=== PATIENT | female | born 1970 | race Caucasian/White ===

== ENCOUNTER 2019-02-19 10:54 | Inpatient (IN) | payer OTHER ==
[~2019-02-19] VITALS: Ht 152.4 cm; Wt 71.7 kg
[2019-02-19] MEDS ORDERED: IV NORMAL SALINE 1,000ML 1,000 ML IV SCH (11:02)
[2019-02-19] MEDS ORDERED: ONDANSETRON PF 4 MG/2 ML VIAL. IVP ONE (11:15)
[2019-02-19 11:39] LABS: BASO # 0.1 x10^3/uL (0.0-0.2); BASO % 1 % (0-3); CREATININE 0.9 mg/dL (0.6-1.0); EOS # 0.1 x10^3/uL (0.0-0.7); EOS % 1 % (0-3); GFR 66.3; HEMATOCRIT 30.2 % (36.0-47.0); HEMOGLOBIN 9.2 g/dL (12.0-15.5); LYMPH # 1.5 x10^3/uL (1.0-4.8); LYMPH % 13 % (24-48); MEAN CORPUSCULAR HEMOGLOBIN 18 pg (25-35); MEAN CORPUSCULAR HGB CONC 31 g/dL (31-37); MEAN CORPUSCULAR VOLUME 60 fL (79-100); MONO # 0.9 x10^3/uL (0.0-1.1); MONO % 8 % (0-9); NEUT # 8.9 x10^3uL (1.8-7.7); NEUT % 78 % (31-73); PLATELET COUNT 726 x10^3/uL (140-400); POTASSIUM 3.3 mmol/L (3.5-5.1); RED BLOOD COUNT 5.04 x10^6/uL (3.50-5.40); RED CELL DISTRIBUTION WIDTH 18.4 % (11.5-14.5); WHITE BLOOD COUNT 11.5 x10^3/uL (4.0-11.0)
[2019-02-19 11:44] LABS: AMPHETAMINE/METHAMPHETAMINE NEG (NEG); BARBITURATES NEG (NEG); BENZODIAZEPINES NEG (NEG); CANNABINOIDS NEG (NEG); COCAINE NEG (NEG); METHADONE NEG (NEG); OPIATES NEG (NEG); PHENCYCLIDINE NEG (NEG)
[2019-02-19 11:45] LABS: ALBUMIN 3.7 g/dL (3.4-5.0); TOTAL BILIRUBIN 0.3 mg/dL (0.2-1.0); TOTAL PROTEIN 7.4 g/dL (6.4-8.2)
[2019-02-19 11:55] LABS: CLARITY,URINE CLEAR; COLOR,URINE YELLOW
[2019-02-19 11:56] LABS: BILIRUBIN,URINE NEG (NEG); GLUCOSE,URINE NEG (NEG); NITRITE,URINE NEG (NEG); UROBILINOGEN,URINE 0.2 mg/dL (0.2 mg/dL)
[2019-02-19 11:57] LABS: AMORPHOUS SEDIMENT,UR PRESENT /HPF; BACTERIA,URINE FEW /HPF (0-FEW); SQUAMOUS EPITHELIAL CELL,UR MOD /LPF
[2019-02-19 12:10] LABS: ANISOCYTOSIS SLIGHT; HYPOCHROMIA MOD; MICROCYTOSIS MOD; PLT ESTIMATE INCREASED (ADEQUATE); TEAR DROP CELLS FEW
[2019-02-19 12:11] LABS: ACANTHOCYTES OCC; OVALOCYTES MOD; TARGET CELLS OCC
[2019-02-19 12:12] LABS: POIKILOCYTOSIS MOD; POLYCHROMASIA SLIGHT
--- NOTE | 2019-02-19 12:26 | PHYS DOC ---
Past History Past Medical History: Anxiety, Bipolar, Depression, Fibromyalgia, IBS Past Surgical History: Other Additional Past Surgical Histo: HERNIA/WISDOM TEETH Alcohol Use: None Drug Use: None Adult General Chief Complaint Chief Complaint: ABDOMINAL PAIN HPI HPI Patient is a 48-year-old female who presents with complaint of abdominal pain with nausea and vomiting. Patient states that she is worried that she is being poisoned. She states that there has been a lot of suspicious things have been going on and she states that she just recently completed a will and has been acting very strangely. She also indicates that he is visiting the town where his ex- is and while patient states that may be its nothing that's going on in. Week once dental, she is worried that someone may be trying to poison her. Patient is scheduled for both upper and lower endoscopies on Friday but patient stated she was not able to wait until that time.[] Review of Systems Review of Systems Constitutional: Denies fever or chills [] Respiratory: Denies cough or shortness of breath [] Cardiovascular: No additional information not addressed in HPI [] GI: Complains of abdominal pain with nausea and vomiting. Denies diarrhea [] Integument: Denies rash or skin lesions [] Neurologic: Denies headache, focal weakness or sensory changes [] All other systems were reviewed and found to be within normal limits, except as documented in this note. Current Medications Current Medications Current Medications Medications (Trade) Dose Ordered Sig/Toño Start Time Stop Time Status Last Admin Dose Admin Fentanyl Citrate (Fentanyl 2ml Vial) 25 mcg PRN Q15MIN PRN 02/19/19 11:15 02/20/19 11:14 02/19/19 12:02 25 MCG Ondansetron HCl (Zofran) 4 mg 1X ONCE 02/19/19 11:15 02/19/19 11:18 DC 02/19/19 11:35 4 MG Sodium Chloride 1,000 ml @ 1,000 mls/hr Q1H 02/19/19 11:02 02/19/19 12:01 DC 02/19/19 11:32 1,000 MLS/HR Allergies Allergies Allergies Coded Allergies Type Severity Reaction Last Updated Verified Penicillins Allergy Unknown 02/19/19 Yes Sulfa (Sulfonamide Antibiotics) Allergy Unknown 02/19/19 Yes clarithromycin Allergy Unknown 02/19/19 Yes metronidazole Allergy Unknown 02/19/19 Yes Physical Exam Physical Exam Constitutional: Well developed, well nourished, no acute distress, non-toxic appearance. [] HENT: Normocephalic, atraumatic, bilateral external ears normal, oropharynx moist, no oral exudates, nose normal. [] Eyes: PERRLA, EOMI, conjunctiva normal, no discharge. [] Neck: Normal range of motion, no tenderness, supple. [] Cardiovascular: Regular rate and rhythm[] Lungs & Thorax: Bilateral breath sounds clear to auscultation [] Abdomen: Bowel sounds normal, soft, with epigastric tenderness. [] Skin: Warm, dry, no erythema, no rash. [] Extremities: No tenderness, no cyanosis, no clubbing, ROM intact, no edema. [] Neurologic: Alert and oriented X 3, no focal deficits noted. [] Psychologic: Depressed mood. Moderately anxious. [] Current Patient Data Vital Signs Vital Signs Date Time Temp Pulse Resp B/P (MAP) Pulse Ox O2 Delivery O2 Flow Rate FiO2 02/19/19 12:02 20 Room Air 02/19/19 11:40 85 144/76 (98) 99 02/19/19 10:55 98.6 Lab Results Laboratory Tests Test 02/19/19 11:17 02/19/19 11:20 02/19/19 11:26 White Blood Count 11.5 x10^3/uL (4.0-11.0) H Red Blood Count 5.04 x10^6/uL (3.50-5.40) Hemoglobin 9.2 g/dL (12.0-15.5) L Hematocrit 30.2 % (36.0-47.0) L Mean Corpuscular Volume 60 fL (79-100) L Mean Corpuscular Hemoglobin 18 pg (25-35) L Mean Corpuscular Hemoglobin Concent 31 g/dL (31-37) Red Cell Distribution Width 18.4 % (11.5-14.5) H Platelet Count 726 x10^3/uL (140-400) H Neutrophils (%) (Auto) 78 % (31-73) H Lymphocytes (%) (Auto) 13 % (24-48) L Monocytes (%) (Auto) 8 % (0-9) Eosinophils (%) (Auto) 1 % (0-3) Basophils (%) (Auto) 1 % (0-3) Neutrophils # (Auto) 8.9 x10^3uL (1.8-7.7) H Lymphocytes # (Auto) 1.5 x10^3/uL (1.0-4.8) Monocytes # (Auto) 0.9 x10^3/uL (0.0-1.1) Eosinophils # (Auto) 0.1 x10^3/uL (0.0-0.7) Basophils # (Auto) 0.1 x10^3/uL (0.0-0.2) Platelet Estimate Increased (ADEQUATE) Large Platelets Occ Polychromasia Slight Hypochromasia Mod Poikilocytosis Mod Anisocytosis Slight Microcytosis Mod Target Cells Occ Tear Drop Cells Few Ovalocytes Mod Acanthocytes (Spur Cells) Occ Sodium Level 142 mmol/L (136-145) Potassium Level 3.3 mmol/L (3.5-5.1) L Chloride Level 107 mmol/L (98-107) Carbon Dioxide Level 22 mmol/L (21-32) Anion Gap 13 (6-14) Blood Urea Nitrogen 16 mg/dL (7-20) Creatinine 0.9 mg/dL (0.6-1.0) Estimated GFR (Cockcroft-Gault) 66.3 BUN/Creatinine Ratio 18 (6-20) Glucose Level 114 mg/dL (70-99) H Calcium Level 9.0 mg/dL (8.5-10.1) Total Bilirubin 0.3 mg/dL (0.2-1.0) Aspartate Amino Transferase (AST) 24 U/L (15-37) Alanine Aminotransferase (ALT) 40 U/L (14-59) Alkaline Phosphatase 93 U/L (46-116) Total Protein 7.4 g/dL (6.4-8.2) Albumin 3.7 g/dL (3.4-5.0) Albumin/Globulin Ratio 1.0 (1.0-1.7) Lipase 314 U/L (73-393) Urine Collection Type Unknown Urine Color Yellow Urine Clarity Clear Urine pH 7.0 Urine Specific [place] 1.020 Urine Protein 30 mg/dl (NEG-TRACE) Urine Glucose (UA) Neg mg/dL (NEG) Urine Ketones (Stick) 80 mg/dL (NEG) Urine Blood Neg (NEG) Urine Nitrite Neg (NEG) Urine Bilirubin Neg (NEG) Urine Urobilinogen Dipstick 0.2 mg/dL (0.2 mg/dL) Urine Leukocyte Esterase Small (NEG) Urine RBC 1-2 /HPF (0-2) Urine WBC 5-10 /HPF (0-4) Urine Squamous Epithelial Cells Mod /LPF Urine Amorphous Sediment Present /HPF Urine Bacteria Few /HPF (0-FEW) Urine Mucus Slight /LPF Urine Opiates Screen Neg (NEG) Urine Methadone Screen Neg (NEG) Urine Barbiturates Neg (NEG) Urine Phencyclidine Screen Neg (NEG) Urine Amphetamine/Methamphetamine Neg (NEG) Urine Benzodiazepines Screen Neg (NEG) Urine Cocaine Screen Neg (NEG) Urine Cannabinoids Screen Neg (NEG) Urine Ethyl Alcohol Neg (NEG) POC Urine HCG, Qualitative hcg negative (Negative) EKG EKG [] Radiology/Procedures Radiology/Procedures [] Impressions: Examination: CT ABD PELV W/ IV CONTRST ONLY History: Pelvic pain Comparison/Correlation: 08/06/2011 CT abdomen and pelvis with contrast Findings: Axial images of the abdomen and pelvis were obtained following IV contrast. Sagittal and coronal reformatted images were provided. Visualized lung bases are clear. Liver, spleen, pancreas, and adrenal glands are normal. Left kidney is unremarkable. Retroaortic left renal vein is present. Right renal lower pole 0.75 cm diameter nonobstructive calyceal calculus is present. Appendix is normal. Small umbilical hernia contains omental fat. No extraluminal gas or bowel obstruction. Diverticulosis of colon is present without acute inflammation. Circumferential wall thickening of the sigmoid colon which appears represent contraction or spasm is present. Left adnexal small follicle is visualized in appearance. Right adnexal follicles and 2.6 cm diameter slightly complex cyst are present. Fibroid involvement of the uterus is present. A fibroid at the right uterine body measuring up to 3.9 cm diameter is present. Urinary bladder is decompressed which probably accounts for subtle parenchymal thickening noted. Bony structures are unremarkable for patient's age. Mild levo convexity of the lumbar spine present. No ascites or pelvic free fluid. No enlarged abdominal or pelvic lymph nodes. Impression: Diverticulosis. Fibroid uterus. Adnexal follicles and slightly high-density right ovarian cyst are physiologic in appearance. Ultrasound correlation is recommended to further assess the slightly dense right ovarian cyst. Nonobstructing right renal calculus. PQRS Compliance Statement: One or more of the following individualized dose reduction techniques were utilized for this examination: 1. Automated exposure control 2. Adjustment of the mA and/or kV according to patient size 3. Use of iterative reconstruction technique Electronically signed by: Avel Manzo MD (02/19/2019 1:20 PM) [facility] Course & Med Decision Making Course & Med Decision Making Pertinent Labs and Imaging studies reviewed. (See chart for details) [] Dragon Disclaimer Dragon Disclaimer This electronic medical record was generated, in whole or in part, using a voice recognition dictation system. Departure Departure: Impression: Primary Impression: Abdominal pain Additional Impression: Intractable nausea and vomiting Disposition: ADMITTED INPATIENT Admitting Physician: Hayley Robles Condition: IMPROVED Referrals: GARRICK OWEN MD (PCP) Problem Qualifiers Primary Impression: Abdominal pain Abdominal location: unspecified location Qualified Codes: R10.9 - Unspecified abdominal pain RAYMUNDO AYOUB Jr. DO Feb 19, 2019 12:26
[2019-02-19] MEDS ORDERED: IOHEXOL 300 MG/ML 75 ML VIAL. IV ONE (12:30)
--- NOTE | 2019-02-19 13:22 | RAD ---
Examination: CT ABD PELV W/ IV CONTRST ONLY History: Pelvic pain Comparison/Correlation: 08/06/2011 CT abdomen and pelvis with contrast Findings: Axial images of the abdomen and pelvis were obtained following IV contrast. Sagittal and coronal reformatted images were provided. Visualized lung bases are clear. Liver, spleen, pancreas, and adrenal glands are normal. Left kidney is unremarkable. Retroaortic left renal vein is present. Right renal lower pole 0.75 cm diameter nonobstructive calyceal calculus is present. Appendix is normal. Small umbilical hernia contains omental fat. No extraluminal gas or bowel obstruction. Diverticulosis of colon is present without acute inflammation. Circumferential wall thickening of the sigmoid colon which appears represent contraction or spasm is present. Left adnexal small follicle is visualized in appearance. Right adnexal follicles and 2.6 cm diameter slightly complex cyst are present. Fibroid involvement of the uterus is present. A fibroid at the right uterine body measuring up to 3.9 cm diameter is present. Urinary bladder is decompressed which probably accounts for subtle parenchymal thickening noted. Bony structures are unremarkable for patient's age. Mild levo convexity of the lumbar spine present. No ascites or pelvic free fluid. No enlarged abdominal or pelvic lymph nodes. Impression: Diverticulosis. Fibroid uterus. Adnexal follicles and slightly high-density right ovarian cyst are physiologic in appearance. Ultrasound correlation is recommended to further assess the slightly dense right ovarian cyst. Nonobstructing right renal calculus. PQRS Compliance Statement: One or more of the following individualized dose reduction techniques were utilized for this examination: 1. Automated exposure control 2. Adjustment of the mA and/or kV according to patient size 3. Use of iterative reconstruction technique Electronically signed by: Avel Manzo MD (02/19/2019 1:20 PM) [facility]
[2019-02-19] MEDS: IV NORMAL SALINE 1,000ML 1,000 ML IV SCH ×2 (13:42→20:52)
[2019-02-19] MEDS ORDERED: MORPHINE SULFATE 2 MG/ML DISP.SYRIN. IV PRN (13:45)
[2019-02-19 14:39] VITALS: BP 152/89
[2019-02-19] MEDS ORDERED: HYDR25CA PO (15:16)
[2019-02-19] MEDS ORDERED: FLUV50TA2 PO (15:16)
[2019-02-19] MEDS ORDERED: MONT10TA80 PO (15:16)
[2019-02-19] MEDS ORDERED: MAGN100T6 PO (15:16)
[2019-02-19] MEDS ORDERED: QUET50TA5 PO (15:16)
[2019-02-19] MEDS ORDERED: OMEP40CA45 PO (15:16)
[2019-02-19] MEDS ORDERED: FLUT15.845 NS (15:16)
[2019-02-19] MEDS ORDERED: RIZA10TA6 PO (15:16)
[2019-02-19] MEDS ORDERED: LAMO100T37 PO (15:16)
[2019-02-19] MEDS ORDERED: POLY17PO5 PO (15:16)
[2019-02-19] MEDS ORDERED: TOPI25TA52 PO (15:16)
--- NOTE | 2019-02-19 15:40 | NUR ---
The patient, JUAN CUEVA, 48 y/o, F admitted by GENNA ALMAZAN MD, was given written information regarding hospital policies, unit procedures and contact persons. Valuables were checked and left with patient at bedside. Patient was admitted to [facility] with a diagnosis of abdominal pain, diverticulitis. Dr. Almazan notified of admission via telephone. Responded to bedside. No new orders at this time. Patient stated to this contract technical writer upon arrival " I feel crazy for saying this but i think my may be poisoning me. The past two months i have had weird things happen, like legal paperwork go missing right after we finalized our martinez together and I feel like his ex from [place] may be helping. I have had bad head aches and nose bleeds from no where and bad stomach pains and cramps and this started 2 months ago and has been getting worse. " Patient is alert and oriented x 4, speech is clear, able to make wants and needs known and able to verbalize understanding of others. Patient is stand by assist with ambulation and transfers, lungs are CTA, abdomen is tender, slightly distended , active bowel sounds in all 4 quadrants. HRR S1S2 auscultated with regular rhtyhm. Continent of bowel and bladder, diarrhea reported by patient on 02-19-2019 x 2. Patient is complaining of abdominal pain and nausea at this time. PRN Zofran to be administered per order. Patient is resting in bed at this time.
[2019-02-19] MEDS: ONDANSETRON PF 4 MG/2 ML VIAL. IV PRN ×2 (16:57→20:54)
--- NOTE | 2019-02-19 17:00 | HP ---
ADMIT DATE: 02/19/2019 HISTORY OF PRESENT ILLNESS: The patient is a 48-year-old female patient who presented with a complaint of abdominal pain, nausea and vomiting. The patient stated that she is worried that she is being poisoned. She states that there has been a lot of suspicious things that have been going on and she states that she just recently completed Will and has been eating very strangely, acting very strangely. She also indicates that he is visiting town with his ex- and while patient states that maybe it is nothing that is going on it week. She lost some legal document while he was visiting his daughter there. The patient is scheduled for upper and lower GI endoscopy on Friday, but she stated that she was not able to wait until that time and she cannot even do the bowel preparation given her symptoms. She when questioned specifically whether her has been aggressive or verbally or physically abusive, she denied that. She is very vague about what are things that her was doing that triggered her suspicion. She was actually investigated in the Emergency Room and was found she has severe microcytic hypochromic anemia with multiple abnormalities on her blood film including polychromasia, poikilocytosis, anisocytosis, microcytosis, target cell, teardrop cell, ovalocytes and acanthocytes. Her chemistry was essentially unremarkable except for hypokalemia and her toxic screen was negative. She was admitted for further evaluation and treatment. PAST MEDICAL HISTORY: Significant for fibromyalgia. She has a history of colitis and diverticulosis. She also has bipolar disorder and migraine headache. She has also nasal congestion for which she takes Flonase and also what seemed to be gastroesophageal reflux disease. She has esophageal stricture, it has been dilated multiple times. MEDICATIONS: She is currently on following medications: She is on lamotrigine 100 mg 4 times a day, Topamax 25 mg 4 times a day. She is on fluvoxamine at 25 mg 3 times a day, quetiapine fumarate 50 mg daily, hydroxyzine pamoate 25 mg as needed, rizatriptan for Maxalt 5 mg every 2 hours for migraine headache, magnesium citrate 100 mg once a day, montelukast sodium 10 mg once a day, Flonase 1 spray to each nostril twice a day, polyethylene glycol 17 grams daily and omeprazole 40 mg daily. ALLERGIES: SHE IS ALLERGIC TO SULFA DRUGS, CLARITHROMYCIN AND METRONIDAZOLE. FAMILY HISTORY: She has one brother older and healthy. Her father is 86 years old and has Alzheimer's disease and hypertension. Mother is alive at age of 83. She has history of breast cancer with bilateral breast cancer, diverticulitis and fibromyalgia. SOCIAL HISTORY: She is , has 1 son who is 19 years old. She has never smoked, does not drink alcohol or use any recreational drugs. 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 REVIEW OF SYSTEMS: The patient denies any blurring of vision, cataract, glaucoma or macular degeneration. Denied any earache, tinnitus or sensorineural deafness. Denied any nosebleeds, stuffy nose or postnasal drip. Denied any sore throat, sore tongue, toothache, hoarseness of voice or difficulty swallowing. She did complain of difficulty swallowing but denied any nausea, but no vomiting. Denied any diarrhea or constipation. Denied any hematemesis, melena or hematochezia. Denied any dysuria, frequency or hematuria. Denied any chest pain, shortness of breath, orthopnea or paroxysmal nocturnal dyspnea. Denied any cough, phlegm or hemoptysis. Denied any chills, rigors or fever. PHYSICAL EXAMINATION: GENERAL: When I examined her, she looked well and was clearly in no apparent respiratory distress, pale, no jaundice, cyanosis or thyromegaly. No jugular venous distention. No limb edema. VITAL SIGNS: Her heart rate was 81, blood pressure was 152/89, temperature 98.3, respiratory rate was 20, and oxygen saturation was 98%. HEAD, EYES, EARS, NOSE AND THROAT: Showed normocephalic, atraumatic. NECK: Supple. HEART: Showed normal first and second heart sounds. No gallop or murmur. CHEST: Clear to auscultation. No crepitation or rhonchi. ABDOMEN: Distended, soft, nontender. NEUROLOGICAL: She was awake, alert, responding appropriately. All cranial nerves intact. She moves extremities without difficulty. PSYCHOLOGICALLY: She seemed to have some circumstantiality, has not been able to clearly pinpoint what and how she is poisoned. LABORATORY DATA: This morning showed a white cell count 11,500, hemoglobin 9.2, hematocrit 30, MCV 60 and a platelet count of 726,000. Her chemistry showed a serum sodium 142, potassium 3.3, chloride 107, bicarbonate 22, anion gap of 13, BUN 16, creatinine 0.9, estimated GFR was 66 mL per minute. Her glucose 114, calcium was 9. Total bilirubin, AST, ALT, alkaline phosphatase were normal. Total protein 7.4, albumin 3.7 and lipase was 314. Urinalysis was essentially unremarkable and toxic screen was essentially negative. ASSESSMENT AND PLAN: In summary, this is a 48-year-old female patient who came complaining of generalized abdominal pain associated with nausea. She has not been able to eat and drink for the last 2 months. She was supposed to have upper and lower GI endoscopy, but she has not been able even to get the preparation to go through the process of bowel preparation because of her symptoms. For some reason, she feels that she is poisoning. Her lab work showed that she has severe microcytic hypochromic anemia with multiple abnormalities in the shape and size of the RBC. My plan is to check her serum iron, TIBC, and serum ferritin. I will also contact the lab to see if we can check the level of lead in her blood and I will decide the further management accordingly. I would also order hemoglobin electrophoresis to find out if she has some other hemoglobinopathy like thalassemia and I will decide the further management accordingly. I would also consult Dr. Mortensen to evaluate her as she is one of his patients. I feel that she has some paranoia with marked exacerbation without clear-cut evidence that she is being poisoned. GENNA ALMAZAN MD DR: ILENE/neto JOB#: [id number] / [id number]
[2019-02-19 20:37] VITALS: BP 127/76
--- NOTE | 2019-02-19 21:02 | PDOC ---
Exam Note: Georges Note: Please also refer to the separate dictated note~for this date of service dictated separately.~Patient seen individually. Discussed the patient with Nursing staff reviewed the chart.~Reviewed interim history and current functioning. Reviewed vital signs,~Labs/ Radiology~and current medications noted below. Continue current treatment with the changes noted in the dictated addendum note Assessment: Vital Signs/I&O: Vital Signs Date Time Temp Pulse Resp B/P (MAP) Pulse Ox O2 Delivery O2 Flow Rate FiO2 02/19/19 20:37 98.2 71 20 127/76 (93) 97 Room Air Labs: Laboratory Tests Test 02/19/19 11:17 02/19/19 11:20 02/19/19 11:26 White Blood Count 11.5 x10^3/uL (4.0-11.0) H Red Blood Count 5.04 x10^6/uL (3.50-5.40) Hemoglobin 9.2 g/dL (12.0-15.5) L Hematocrit 30.2 % (36.0-47.0) L Mean Corpuscular Volume 60 fL (79-100) L Mean Corpuscular Hemoglobin 18 pg (25-35) L Mean Corpuscular Hemoglobin Concent 31 g/dL (31-37) Red Cell Distribution Width 18.4 % (11.5-14.5) H Platelet Count 726 x10^3/uL (140-400) H Neutrophils (%) (Auto) 78 % (31-73) H Lymphocytes (%) (Auto) 13 % (24-48) L Monocytes (%) (Auto) 8 % (0-9) Eosinophils (%) (Auto) 1 % (0-3) Basophils (%) (Auto) 1 % (0-3) Neutrophils # (Auto) 8.9 x10^3uL (1.8-7.7) H Lymphocytes # (Auto) 1.5 x10^3/uL (1.0-4.8) Monocytes # (Auto) 0.9 x10^3/uL (0.0-1.1) Eosinophils # (Auto) 0.1 x10^3/uL (0.0-0.7) Basophils # (Auto) 0.1 x10^3/uL (0.0-0.2) Platelet Estimate Increased (ADEQUATE) Large Platelets Occ Polychromasia Slight Hypochromasia Mod Poikilocytosis Mod Anisocytosis Slight Microcytosis Mod Target Cells Occ Tear Drop Cells Few Ovalocytes Mod Acanthocytes (Spur Cells) Occ Sodium Level 142 mmol/L (136-145) Potassium Level 3.3 mmol/L (3.5-5.1) L Chloride Level 107 mmol/L (98-107) Carbon Dioxide Level 22 mmol/L (21-32) Anion Gap 13 (6-14) Blood Urea Nitrogen 16 mg/dL (7-20) Creatinine 0.9 mg/dL (0.6-1.0) Estimated GFR (Cockcroft-Gault) 66.3 BUN/Creatinine Ratio 18 (6-20) Glucose Level 114 mg/dL (70-99) H Calcium Level 9.0 mg/dL (8.5-10.1) Total Bilirubin 0.3 mg/dL (0.2-1.0) Aspartate Amino Transferase (AST) 24 U/L (15-37) Alanine Aminotransferase (ALT) 40 U/L (14-59) Alkaline Phosphatase 93 U/L (46-116) Total Protein 7.4 g/dL (6.4-8.2) Albumin 3.7 g/dL (3.4-5.0) Albumin/Globulin Ratio 1.0 (1.0-1.7) Lipase 314 U/L (73-393) Urine Collection Type Unknown Urine Color Yellow Urine Clarity Clear Urine pH 7.0 Urine Specific [place] 1.020 Urine Protein 30 mg/dl (NEG-TRACE) Urine Glucose (UA) Neg mg/dL (NEG) Urine Ketones (Stick) 80 mg/dL (NEG) Urine Blood Neg (NEG) Urine Nitrite Neg (NEG) Urine Bilirubin Neg (NEG) Urine Urobilinogen Dipstick 0.2 mg/dL (0.2 mg/dL) Urine Leukocyte Esterase Small (NEG) Urine RBC 1-2 /HPF (0-2) Urine WBC 5-10 /HPF (0-4) Urine Squamous Epithelial Cells Mod /LPF Urine Amorphous Sediment Present /HPF Urine Bacteria Few /HPF (0-FEW) Urine Mucus Slight /LPF Urine Opiates Screen Neg (NEG) Urine Methadone Screen Neg (NEG) Urine Barbiturates Neg (NEG) Urine Phencyclidine Screen Neg (NEG) Urine Amphetamine/Methamphetamine Neg (NEG) Urine Benzodiazepines Screen Neg (NEG) Urine Cocaine Screen Neg (NEG) Urine Cannabinoids Screen Neg (NEG) Urine Ethyl Alcohol Neg (NEG) POC Urine HCG, Qualitative hcg negative (Negative) Current Medications: Meds: Current Medications Medications (Trade) Dose Ordered Sig/Toño Route PRN Reason Start Time Stop Time Status Last Admin Dose Admin Fentanyl Citrate (Fentanyl 2ml Vial) 25 mcg PRN Q15MIN PRN IV PAIN GREATER THAN 3/10 02/19/19 11:15 02/20/19 11:14 02/19/19 12:02 Sodium Chloride 1,000 ml @ 1,000 mls/hr Q1H IV 02/19/19 11:02 02/19/19 12:01 DC 02/19/19 11:32 Ondansetron HCl (Zofran) 4 mg 1X ONCE IVP 02/19/19 11:15 02/19/19 11:18 DC 02/19/19 11:35 Iohexol (Omnipaque 300 Mg/ml) 75 ml 1X ONCE IV 02/19/19 12:30 02/19/19 12:31 DC 02/19/19 12:44 Ondansetron HCl (Zofran) 4 mg PRN Q4HRS PRN IV NAUSEA/VOMITING 02/19/19 13:45 02/20/19 13:44 02/19/19 20:54 Sodium Chloride 1,000 ml @ 125 mls/hr Q8H IV 02/19/19 13:42 02/20/19 13:41 02/19/19 20:52 I have reviewed the current psychotropics carefully including drug interactions. Risk benefit ratio favors no change other than as noted in my dictated progress note. Diagnosis: Problems: (1) Bipolar 1 disorder, mixed, moderate (2) Anxiety disorder (3) Psychosis, atypical PAUL MUSA MD Feb 19, 2019 21:02
[2019-02-19 22:47] VITALS: BP 126/73
--- NOTE | 2019-02-20 01:15 | EKG ---
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
[2019-02-20] MEDS: IV NORMAL SALINE 1,000ML 1,000 ML IV SCH (03:09)
[2019-02-20] MEDS: ONDANSETRON PF 4 MG/2 ML VIAL. IV PRN ×2 (04:07→09:44)
[2019-02-20 05:31] VITALS: BP 147/74
[2019-02-20] MEDS ORDERED: hydrOXYzine PAMOATE 25 MG CAPSULE PO PRN (09:00)
[2019-02-20 10:51] VITALS: BP 138/73
[2019-02-20 15:36] VITALS: BP 120/75
[2019-02-20] MEDS ORDERED: IRON SUCROSE COMPLEX 200 MG in IV NORMAL SALINE 100ML 100 ML IV ONE (16:30)
[2019-02-20] MEDS: POTASSIUM CL 40MEQ D5-0.45NACL 1,000 ML IV SCH (17:50)
[2019-02-20 19:24] VITALS: BP 135/80
[2019-02-20] MEDS: risperiDONE 0.5 MG TABLET. PO SCH (21:27)
--- NOTE | 2019-02-20 21:27 | PDOC ---
Exam Note: Georges Note: Please also refer to the separate dictated note~for this date of service dictated separately.~Patient seen individually. Discussed the patient with Nursing staff reviewed the chart.~Reviewed interim history and current functioning. Reviewed vital signs,~Labs/ Radiology~and current medications noted below. Continue current treatment with the changes noted in the dictated addendum note Assessment: Vital Signs/I&O: Vital Signs Date Time Temp Pulse Resp B/P (MAP) Pulse Ox O2 Delivery O2 Flow Rate FiO2 02/20/19 20:10 18 Room Air 02/20/19 19:24 98.9 67 135/80 (98) 98 I & O 02/19/19 02/19/19 02/20/19 15:00 23:00 07:00 Intake Total 1000 ml 500 ml 1134 ml Balance 1000 ml 500 ml 1134 ml Current Medications: Meds: Current Medications Medications (Trade) Dose Ordered Sig/Toño Route PRN Reason Start Time Stop Time Status Last Admin Dose Admin Hydroxyzine Pamoate (Vistaril) 25 mg PRN Q6HRS PRN PO ITCHING 02/20/19 09:00 02/20/19 09:44 Iron Sucrose 200 mg/Sodium Chloride 110 ml @ 110 mls/hr 1X ONCE IV 02/20/19 16:30 02/20/19 17:29 DC 02/20/19 17:49 Fentanyl Citrate (Fentanyl 2ml Vial) 25 mcg PRN Q4HRS PRN IVP PAIN 02/20/19 16:15 02/20/19 19:36 Potassium Chloride/Dextrose/ Sod Cl 1,000 ml @ 75 mls/hr [id number] IV 02/20/19 16:15 02/20/19 17:50 I have reviewed the current psychotropics carefully including drug interactions. Risk benefit ratio favors no change other than as noted in my dictated progress note. Diagnosis: Problems: (1) Abdominal pain (2) Intractable nausea and vomiting (3) Bipolar 1 disorder, mixed, moderate (4) Anxiety disorder (5) Psychosis, atypical PAUL MUSA MD Feb 20, 2019 21:27
[2019-02-20] MEDS: ONDANSETRON PF 4 MG/2 ML VIAL. IVP PRN (22:14)
[2019-02-20 22:28] VITALS: BP 150/91
--- NOTE | 2019-02-20 23:55 | NUR ---
Pt still paranoid about being poisoned by . Dr Mortensen here to see pt. stopping Seroquel and starting Risperdal tonight. Pt very concerned about going home and completing her bowel prep for her outpt colonoscopy with Dr Sal on Friday, stating "I think I will have to go to the ER to make it and get fluids because I will be so dehydrated." Pt c/o fibromyalgia pain and sinus pressure. Pt requesting Fentanyl and warm compress for head. Pt stated that she slept better tonight.
[2019-02-21] VITALS (7 sets, daily range): BP systolic 96–132; BP diastolic 67–82
--- NOTE | 2019-02-21 01:33 | PN ---
DATE: 02/20/2019 SUBJECTIVE: The patient continues to have paranoid ideations. We did check her iron studies and it did show that she has severe iron-deficiency anemia. Her serum iron was only 16, TIBC was extremely high at 429, iron saturation 4 and ferritin was only 8. Her lead and hemoglobin electrophoresis are still pending at the time of this dictation. She has also hypokalemia that we will replenish. OBJECTIVE: GENERAL: When I saw her this afternoon, she looked well and was clearly in no apparent respiratory distress. VITAL SIGNS: Her vital signs are stable with a heart rate of 77, blood pressure was 120/75, temperature 98, respiratory rate 20, and oxygen saturation was 97%. The rest of clinical examination is stable. PLAN: My plan is to replenish her iron stores and start her on Venofer 200 mg IV once today and tomorrow morning she will get 500 and she can go home to start the process of bowel preparation for her upcoming colonoscopy. I did send blood for hemoglobin electrophoresis and also for a lead level and we will let her know once it becomes available. GENNA ALMAZAN MD DR: ILENE/neto JOB#: [id number] / [id number]
[2019-02-21] MEDS: POTASSIUM CL 40MEQ D5-0.45NACL 1,000 ML IV SCH ×2 (05:45→18:55)
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
[2019-02-21 07:54] LABS: CALCIUM 8.4 mg/dL (8.5-10.1); CREATININE 0.7 mg/dL (0.6-1.0); GFR 88.6; POTASSIUM 3.6 mmol/L (3.5-5.1)
[2019-02-21] MEDS ORDERED: IRON SUCROSE COMPLEX 500 MG in IV NORMAL SALINE 250ML 250 ML IV ONE (08:30)
[2019-02-21] MEDS: ONDANSETRON PF 4 MG/2 ML VIAL. IVP PRN (08:48)
[2019-02-21] MEDS ORDERED: diphenhydrAMINE 50 MG/ML VIAL IVP ONE (12:45)
[2019-02-21] MEDS ORDERED: LORazepam 0.5 MG TABLET PO PRN ×2 (12:45)
[2019-02-21] MEDS ORDERED: HYDROCORTISONE SOD SUCC/PF 100 MG/2 ML VIAL. IVP ONE (12:45)
--- NOTE | 2019-02-21 14:19 | PN ---
DATE: 02/21/2019 SUBJECTIVE: The patient was receiving Venofer, the second dose, with a plan to discharge her home to continue preparation for colonoscopy tomorrow. She apparently developed hives. She has been complaining of burning sensation all over. States she is going to pass out. PHYSICAL EXAMINATION: GENERAL: When I examined her, she looked well and was clearly in no apparent respiratory distress. She was pale, but no jaundice or cyanosis. No lymphadenopathy, no thyromegaly. No jugular venous distension. No lower limb edema. VITAL SIGNS: Her heart rate was 118, blood pressure was 96/69, temperature was 97.9, respiratory rate was 20, and oxygen saturation was 100% on room air. HEAD, EYES, EARS, NOSE AND THROAT: Showed normocephalic, atraumatic. NECK: Supple. HEART: Showed normal first and second heart sounds. No gallop, rub or murmur. CHEST: Clear to auscultation. No crepitation or rhonchi. ABDOMEN: Distended, soft, nontender. NEUROLOGIC: She is awake, alert, responding appropriately. All cranial nerves intact. She moves extremities without difficulty. LABORATORY DATA: Her lab work this morning showed serum sodium 142, potassium 3.6, chloride 109, bicarbonate 22, anion gap of 11, BUN 5, creatinine 0.7, estimated GFR was 86 mL per minute. Her glucose 113, calcium was 8.4. Her hemoglobin was 9, hematocrit 30, white cell count was 11,500 and platelets 226,000. She has severe iron deficiency anemia. Serum iron was 16, TIBC was 429, iron saturation was 4% and ferritin was 8%. PLAN: To give her half a liter of normal saline bolus, 100 mg of hydrocortisone and 50 mg of Benadryl. We will monitor her closely and see how she responds. The patient was seen, we did consult Dr. Mortensen. She seemed to be in some kind of paranoia and was very nonspecific and unable to specifically point out why her might be attempting to harm her. GENNA ALMAZAN MD DR: ILENE/neto JOB#: [id number] / [id number]
--- NOTE | 2019-02-21 20:51 | PDOC ---
Exam Note: Georges Note: Please also refer to the separate dictated note~for this date of service dictated separately.~Patient seen individually. Discussed the patient with Nursing staff reviewed the chart.~Reviewed interim history and current functioning. Reviewed vital signs,~Labs/ Radiology~and current medications noted below. Continue current treatment with the changes noted in the dictated addendum note Assessment: Vital Signs/I&O: Vital Signs Date Time Temp Pulse Resp B/P (MAP) Pulse Ox O2 Delivery O2 Flow Rate FiO2 02/21/19 20:00 Room Air 02/21/19 19:21 98.9 91 16 125/78 (94) 94 I & O 02/20/19 02/20/19 02/21/19 15:00 23:00 07:00 Intake Total 232 ml 967 ml Balance 232 ml 967 ml Labs: Laboratory Tests Test 02/21/19 07:02 Sodium Level 142 mmol/L (136-145) Potassium Level 3.6 mmol/L (3.5-5.1) Chloride Level 109 mmol/L (98-107) H Carbon Dioxide Level 22 mmol/L (21-32) Anion Gap 11 (6-14) Blood Urea Nitrogen 5 mg/dL (7-20) L Creatinine 0.7 mg/dL (0.6-1.0) Estimated GFR (Cockcroft-Gault) 88.6 Glucose Level 113 mg/dL (70-99) H Calcium Level 8.4 mg/dL (8.5-10.1) L Current Medications: Meds: Current Medications Medications (Trade) Dose Ordered Sig/Toño Route PRN Reason Start Time Stop Time Status Last Admin Dose Admin Iron Sucrose 500 mg/Sodium Chloride 275 ml @ 78.571 mls/ hr 1X ONCE IV 02/21/19 08:30 02/21/19 11:59 DC 02/21/19 08:48 Risperidone (RisperDAL) 0.5 mg HS PO 02/20/19 22:00 02/20/19 21:27 Diphenhydramine HCl (Benadryl) 50 mg 1X ONCE IVP 02/21/19 12:45 02/21/19 12:46 DC 02/21/19 12:45 Hydrocortisone Sodium Succinate (Solu-CORTEF) 100 mg 1X ONCE IVP 02/21/19 12:45 02/21/19 12:46 DC 02/21/19 12:53 Lorazepam (Ativan) 0.5 mg 1X PRN PO ANXIETY / AGITATION 02/21/19 12:45 02/21/19 12:53 I have reviewed the current psychotropics carefully including drug interactions. Risk benefit ratio favors no change other than as noted in my dictated progress note. Diagnosis: Problems: (1) Abdominal pain (2) Intractable nausea and vomiting (3) Bipolar 1 disorder, mixed, moderate (4) Anxiety disorder (5) Psychosis, atypical PAUL MUSA MD Feb 21, 2019 20:51
[2019-02-21] MEDS: risperiDONE 0.5 MG TABLET. PO SCH (21:03)
--- NOTE | 2019-02-21 23:38 | PN ---
DATE: 02/20/2019 PSYCHIATRIC PROGRESS NOTE This late entry 02/20/2019 covers elements not covered in my initial note. SUBJECTIVE: I met with the patient evening of 02/20/2019. Discussed with nursing staff, reviewed the chart. Per nursing report, the Luvox was discontinued. She remains somewhat paranoid. Nevertheless, this has been less evident. Her , Ang, came to visit her and she was less paranoid about him. She has been started on IV iron supplements per Dr. Robles and lead levels are being awaited. REVIEW OF SYSTEMS: Positive for some tiredness. No CV, , pulmonary, eye system symptoms on review. MENTAL STATUS EXAM: I met with her in her room at length. She is reasonably oriented. Speech coherent, abstraction fair, computation impaired, less paranoid, suspicious, talked at length about visiting with her , states she trusts him more. No active suicidal or homicidal ideation. Otherwise, very pleasant, verbal, open. LABORATORY DATA: Reviewed. IMPRESSION: Bipolar disorder, mixed with possible psychotic features. Rest diagnosis unchanged. RECOMMENDATION: Continue the patient on Topamax and Lamictal. Luvox was stopped. We will change the Seroquel to Risperdal 0.5 mg p.o. at bedtime given her questionable psychotic symptoms. The patient has never been on this in the past. We will assess how she does with this before making any further recommendations from a psychiatric standpoint. PAUL MUSA MD DR: QUINTON/neto JOB#: [id number] / [id number]
[2019-02-22 05:59] VITALS: BP 127/74
--- NOTE | 2019-02-22 08:09 | PN ---
DATE: 02/21/2019 PSYCHIATRIC PROGRESS NOTE This late entry 02/21/2019 covers elements not covered in my initial note. SUBJECTIVE: I met with the patient in the evening. Discussed with nursing staff, reviewed the chart. Overall, the patient has been somewhat less paranoid and her , Ang, visited her during the day. She states she had an allergic reaction to the IRON, IV and could not move for a while. Nursing staff indicated that clinically, she was quite stable, but seemed to have an anxiety reaction, perhaps a questionable and adverse drug reaction briefly with not significantly. She is tolerating the Risperdal 0.5 mg at bedtime. REVIEW OF SYSTEMS: No CV, , pulmonary, eye system symptoms on review. MENTAL STATUS EXAM: The patient is reasonably oriented. Speech is coherent, abstraction fair, computation impaired, language function intact. She is very verbal, open, forthcoming, less paranoid. No suicidal or homicidal ideation. Less fixated on things that have been going wrong. LABORATORY DATA: Reviewed. IMPRESSION: Bipolar disorder, mixed with history of psychotic features. Rest unchanged. RECOMMENDATION: We would not recommend anything differently from a psychiatric standpoint. Continue Lamictal at current dosage. Luvox was stopped. Seroquel was changed to Risperdal 0.5 mg at bedtime. We will maintain this for now. PAUL MUSA MD DR: QUINTON/neto JOB#: [id number] / [id number]
--- NOTE | 2019-02-22 09:57 | NUR ---
Pt is alert and oriented x4. Is wanting to try food, but states that she has some abdominal pain after eating crackers. RN suggested we take it easy for breakfast, see how the morning goes and if she does ok then try regular food for lunch. Pt agrees. Pt states she slept the best she has in a long time last night, and is feeling groggy this morning. No expression of paranoia. WCTM.
--- NOTE | 2019-02-22 10:19 | NUR ---
Pt called and asked nurse asset protection assistant for hard boiled egg. Nurse assitant told patient that this RN had discussion with her already about waiting until lunch to let her belly settle since she was getting abdominal pain. Pt reports she doesn't remember this but needs nourishment. RN ordered the hard boiled eggs for her. They were delivered by dietary and dietary came out stating patient doesn't want them and wants her nurse. RN entered room, pt states "i wanted hard boiled eggs, but I guess sometimes people make them different than you". RN asked how do you make a different hard boiled egg. Pt responded, "well i eat them warm, and Bárbara said you and I had a discussion this morning about my diet." RN went over the conversation we had and patient states she doesn't remember it. Then continued to say that she needed nourishment and she could take better care of herself at home and we have no idea whats even wrong with her. RN asked patient about her diverticulosis diagnosis. Pt states she is not aware of that. Pt said she wants something carby and warm to eat, RN offered oatmeal, pt states, "I don't think you have that when you have diverticulosis". She asked what kind of oatmeal, RN said plan, pt replied "blah, thats why I don't like being here, I can do this better at home than you guys can do here, you don't even know whats wrong with me." entered room, RN said, "I gave you a menu, what looks good". starts listing things, pt states no to everything for one reason or another. It was settled on toast and scrambled eggs. RN called Dr Robles, asked if what exactly we were treating this patient for, his reply was paranoia that her was poisoning her and that medically she can go and we can discharge her. Last night, was visiting patient, no issues during this visit and patient told the RN last night that her and her were working things out, it was no longer a concern because they were working things out.
[2019-02-22] MEDS ORDERED: RISP0.5T24 PO (10:48)
[2019-02-22 10:57] VITALS: BP 135/83
--- NOTE | 2019-02-22 11:08 | NUR ---
Patient is discharging, [facility]. INstructed patient to follow up with GI, Dr Mortensen and PCP. Pt verbalized understanding. IV out. Pt escorted via wheelchair to front entrance where was waiting. has been in patients room this morning, no issues. WCTM.
--- NOTE | 2019-02-23 11:29 | PN ---
DATE: 02/22/2019 PSYCHIATRIC PROGRESS NOTE This late entry 02/22/2019 covers elements not covered in my initial note. SUBJECTIVE: I met with the patient individually, discussed with nursing staff, reviewed the chart. The patient reportedly had a reaction to the iron infusion, but it could have been partially an anxiety attack. Discharge was postponed as a consequence of this. She remains somewhat paranoid, but much less so than before and states she is less suspicious of her Ang. She is tolerating Risperdal 0.5 mg p.o. at bedtime. REVIEW OF SYSTEMS: No CV, , pulmonary, eye system symptoms on review. MENTAL STATUS EXAM: Reasonably oriented speech. DICTATION ENDS HERE PAUL MUSA MD DR: QUINTON/neto JOB#: [id number] / [id number]
== END 2019-02-22 11:12 | disposition home or self-care (01) | DRG 392 ==
LOC: ER 10:54 → 1 SOUTH 13:44
PROVIDERS: ADMIT Internal Medicine; ATTEND Internal Medicine
DX: K21.9 Gastro-esophageal reflux disease without esophagitis (principal); F31.62 Bipolar disorder, current episode mixed, moderate; G43.909 Migraine, unspecified, not intractable, without status migrainosus; M79.7 Fibromyalgia; K57.90 Diverticulosis of intestine, part unspecified, without perforation or abscess without bleeding; D50.9 Iron deficiency anemia, unspecified; F41.1 Generalized anxiety disorder; F60.0 Paranoid personality disorder; Z88.1 Allergy status to other antibiotic agents; Z88.0 Allergy status to penicillin; Z88.2 Allergy status to sulfonamides; Z82.49 Family history of ischemic heart disease and other diseases of the circulatory system; Z82.0 Family history of epilepsy and other diseases of the nervous system; Z80.3 Family history of malignant neoplasm of breast; Z79.899 Other long term (current) drug therapy; E87.6 Hypokalemia
CPT/HCPCS: 36415; 74177; 80048; 80053; 80307; 81001; 81025; 82728; 83020; 83540; 83550; 83655; 83690; 85025; 87086; 93005; 96361; 96374; J1200; J1756; J2270; J2405; J3010; J7042; J7050; Q0177; Q9967; 99285-25; J7030

== ENCOUNTER 2019-04-12 11:38 | Emergency (ER) | payer OTHER ==
[~2019-04-12] VITALS: Ht 152.4 cm; Wt 55.0 kg
[~2019-04-12 11:38] MED LIST: FLUT15.845 NS; FLUV50TA2 PO; HYDR25CA PO; LAMO100T37 PO; MAGN100T6 PO; MONT10TA80 PO; OMEP40CA45 PO; POLY17PO5 PO; QUET50TA5 PO; RISP0.5T24 PO; RIZA10TA6 PO; TOPI25TA52 PO
[2019-04-12] MEDS ORDERED: IV NORMAL SALINE 1,000ML 1,000 ML IV SCH (11:50)
[2019-04-12] MEDS ORDERED: METOCLOPRAMIDE HCL 10 MG/2 ML VIAL. IVP ONE (12:00)
[2019-04-12] MEDS ORDERED: diphenhydrAMINE 50 MG/ML VIAL IVP ONE (12:00)
[2019-04-12 12:20] LABS: BASO # 0.1 x10^3/uL (0.0-0.2); BASO % 1 % (0-3); EOS % 1 % (0-3); HEMATOCRIT 40.5 % (36.0-47.0); LYMPH # 1.6 x10^3/uL (1.0-4.8); LYMPH % 18 % (24-48); MEAN CORPUSCULAR HEMOGLOBIN 23 pg (25-35); MEAN CORPUSCULAR HGB CONC 32 g/dL (31-37); MEAN CORPUSCULAR VOLUME 71 fL (79-100); MONO # 0.6 x10^3/uL (0.0-1.1); MONO % 7 % (0-9); NEUT # 6.5 x10^3uL (1.8-7.7); NEUT % 74 % (31-73); PLATELET COUNT 507 x10^3/uL (140-400); RED BLOOD COUNT 5.67 x10^6/uL (3.50-5.40); RED CELL DISTRIBUTION WIDTH 29.3 % (11.5-14.5); WHITE BLOOD COUNT 8.8 x10^3/uL (4.0-11.0)
[2019-04-12 12:25] LABS: CALCIUM 9.5 mg/dL (8.5-10.1); GFR 58.7; POTASSIUM 3.6 mmol/L (3.5-5.1)
[2019-04-12 12:31] LABS: ALBUMIN/GLOBULIN RATIO 1.2 (1.0-1.7); TOTAL BILIRUBIN 0.1 mg/dL (0.2-1.0); TOTAL PROTEIN 7.3 g/dL (6.4-8.2)
[2019-04-12 13:14] LABS: OVALOCYTES FEW; PLT ESTIMATE INCREASED (ADEQUATE); POIKILOCYTOSIS MOD
[2019-04-12 13:15] LABS: ANISOCYTOSIS MOD; HYPOCHROMIA MOD; MICROCYTOSIS MOD; POLYCHROMASIA SLIGHT; TEAR DROP CELLS OCC
--- NOTE | 2019-04-12 13:40 | PHYS DOC ---
Past History Past Medical History: Anxiety, Bipolar, Depression, Fibromyalgia, IBS Past Surgical History: Other Additional Past Surgical Histo: HERNIA/WISDOM TEETH Alcohol Use: None Drug Use: None Adult General Chief Complaint Chief Complaint: ANXIETY/PANIC ATTACK HPI HPI Patient is a 48-year-old female who presents with complaint of nausea and intermittent vomiting as well as severe anxiety. Patient has been admitted multiple times for abdominal pain and nausea as well as anxiety and has had significant workup at both and [facility]. Patient has recently had medications changed for her anxiety but states that nothing is helping. She states that she is just overwhelmed by her anxiety. She also states that she is nauseated today and took a Zofran without improvement. Patient denies any suicidal or homicidal ideations. She rates the pain in her left upper abdomen as moderate and states that it is always like this.[] Review of Systems Review of Systems Constitutional: Denies fever or chills [] Respiratory: Denies cough or shortness of breath [] Cardiovascular: No additional information not addressed in HPI [] GI: Complains of abdominal pain with nausea and vomiting. Denies diarrhea [] Integument: Denies rash or skin lesions [] Neurologic: Denies headache, focal weakness or sensory changes [] Psychiatric: Complains of severe anxiety. Denies any suicidal or homicidal idea tions.[] All other systems were reviewed and found to be within normal limits, except as documented in this note. Current Medications Current Medications Current Medications Medications (Trade) Dose Ordered Sig/Toño Start Time Stop Time Status Last Admin Dose Admin Diphenhydramine HCl (Benadryl) 25 mg 1X ONCE 04/12/19 12:00 04/12/19 12:01 DC 04/12/19 12:10 25 MG Metoclopramide HCl (Reglan Vial) 10 mg 1X ONCE 04/12/19 12:00 04/12/19 12:01 DC 04/12/19 12:11 10 MG Sodium Chloride 1,000 ml @ 1,000 mls/hr Q1H 04/12/19 11:50 04/12/19 12:49 DC 04/12/19 12:08 1,000 MLS/HR Allergies Allergies Allergies Coded Allergies Type Severity Reaction Last Updated Verified Penicillins Allergy Unknown 02/19/19 Yes Sulfa (Sulfonamide Antibiotics) Allergy Unknown 02/19/19 Yes clarithromycin Allergy Unknown 02/19/19 Yes metronidazole Allergy Unknown 02/19/19 Yes Physical Exam Physical Exam Constitutional: Well developed, well nourished, no acute distress, non-toxic appearance. [] HENT: Normocephalic, atraumatic, bilateral external ears normal, oropharynx moist, no oral exudates, nose normal. [] Eyes: PERRLA, EOMI, conjunctiva normal, no discharge. [] Neck: Normal range of motion, no tenderness, supple. [] Cardiovascular: Regular rate and rhythm[] Lungs & Thorax: Bilateral breath sounds clear to auscultation [] Abdomen: Bowel sounds normal, soft, with epigastric and left upper quadrant tenderness. [] Skin: Warm, dry, no erythema, no rash. [] Extremities: No tenderness, no cyanosis, no clubbing, ROM intact. [] Neurologic: Alert and oriented X 3, no focal deficits noted. [] Psychologic: Moderately anxious and tearful on exam. [] Current Patient Data Vital Signs Vital Signs Date Time Temp Pulse Resp B/P (MAP) Pulse Ox O2 Delivery O2 Flow Rate FiO2 04/12/19 13:29 83 18 173/93 (119) 99 Room Air Lab Results Laboratory Tests Test 04/12/19 12:02 White Blood Count 8.8 x10^3/uL (4.0-11.0) Red Blood Count 5.67 x10^6/uL (3.50-5.40) H Hemoglobin 13.0 g/dL (12.0-15.5) Hematocrit 40.5 % (36.0-47.0) Mean Corpuscular Volume 71 fL (79-100) L Mean Corpuscular Hemoglobin 23 pg (25-35) L Mean Corpuscular Hemoglobin Concent 32 g/dL (31-37) Red Cell Distribution Width 29.3 % (11.5-14.5) H Platelet Count 507 x10^3/uL (140-400) H Neutrophils (%) (Auto) 74 % (31-73) H Lymphocytes (%) (Auto) 18 % (24-48) L Monocytes (%) (Auto) 7 % (0-9) Eosinophils (%) (Auto) 1 % (0-3) Basophils (%) (Auto) 1 % (0-3) Neutrophils # (Auto) 6.5 x10^3uL (1.8-7.7) Lymphocytes # (Auto) 1.6 x10^3/uL (1.0-4.8) Monocytes # (Auto) 0.6 x10^3/uL (0.0-1.1) Eosinophils # (Auto) 0.0 x10^3/uL (0.0-0.7) Basophils # (Auto) 0.1 x10^3/uL (0.0-0.2) Platelet Estimate Increased (ADEQUATE) Polychromasia Slight Hypochromasia Mod Poikilocytosis Mod Anisocytosis Mod Microcytosis Mod Tear Drop Cells Occ Ovalocytes Few Sodium Level 141 mmol/L (136-145) Potassium Level 3.6 mmol/L (3.5-5.1) Chloride Level 105 mmol/L (98-107) Carbon Dioxide Level 21 mmol/L (21-32) Anion Gap 15 (6-14) H Blood Urea Nitrogen 18 mg/dL (7-20) Creatinine 1.0 mg/dL (0.6-1.0) Estimated GFR (Cockcroft-Gault) 58.7 BUN/Creatinine Ratio 18 (6-20) Glucose Level 97 mg/dL (70-99) Calcium Level 9.5 mg/dL (8.5-10.1) Total Bilirubin 0.1 mg/dL (0.2-1.0) L Aspartate Amino Transferase (AST) 15 U/L (15-37) Alanine Aminotransferase (ALT) 47 U/L (14-59) Alkaline Phosphatase 85 U/L (46-116) Total Protein 7.3 g/dL (6.4-8.2) Albumin 4.0 g/dL (3.4-5.0) Albumin/Globulin Ratio 1.2 (1.0-1.7) Lipase 410 U/L (73-393) H EKG EKG [] Radiology/Procedures Radiology/Procedures [] Course & Med Decision Making Course & Med Decision Making Pertinent Labs and Imaging studies reviewed. (See chart for details) [] Dragon Disclaimer Dragon Disclaimer This electronic medical record was generated, in whole or in part, using a voice recognition dictation system. Departure Departure: Impression: Primary Impression: Anxiety disorder Additional Impression: Nausea and vomiting Disposition: 01 HOME, SELF-CARE Condition: STABLE Referrals: GARRICK OWEN MD (PCP) Patient Instructions: Anxiety and Panic Attacks, Nausea and Vomiting Scripts Metoclopramide Hcl (REGLAN) 10 Mg Tablet 1 TAB PO QID PRN for NAUSEA, #20 TAB 0 Refills before food and bedtime Prov: RAYMUNDO AYOUB Jr. DO 04/12/19 Problem Qualifiers Primary Impression: Anxiety disorder Anxiety disorder type: unspecified anxiety disorder Qualified Codes: F41.9 - Anxiety disorder, unspecified Additional Impression: Nausea and vomiting Vomiting type: unspecified Vomiting Intractability: non-intractable Qualified Codes: R11.2 - Nausea with vomiting, unspecified RAYMUNDO AYOUB Jr. DO Apr 12, 2019 13:39
[2019-04-12 13:57] LABS: AMORPHOUS SEDIMENT,UR PRESENT /HPF; BACTERIA,URINE FEW /HPF (0-FEW); BILIRUBIN,URINE NEG (NEG); CLARITY,URINE CLOUDY; COLOR,URINE YELLOW; GLUCOSE,URINE NEG (NEG); NITRITE,URINE NEG (NEG); RBC,URINE OCC /HPF (0-2); SQUAMOUS EPITHELIAL CELL,UR FEW /LPF; UROBILINOGEN,URINE 0.2 mg/dL (0.2 mg/dL)
[2019-04-12] MEDS ORDERED: METO10TA81 PO ×2 (14:03→14:14)
[2019-04-12 14:42] VITALS: BP 138/78
[2019-04-13] MEDS ORDERED: DULO30CA2 PO (11:09)
[2019-04-13] MEDS ORDERED: TOPI50TA38 PO (11:09)
[2019-04-13] MEDS ORDERED: PANT40TA5 PO (11:09)
[2019-04-13] MEDS ORDERED: MONT10TA80 PO (11:09)
== END 2019-04-12 15:03 | disposition home or self-care (01) ==
LOC: ER 11:38
DX: F41.9 Anxiety disorder, unspecified (principal); R11.2 Nausea with vomiting, unspecified; R10.13 Epigastric pain; R10.12 Left upper quadrant pain; F31.9 Bipolar disorder, unspecified; M79.7 Fibromyalgia; K58.9 Irritable bowel syndrome, unspecified; Z88.2 Allergy status to sulfonamides; Z88.0 Allergy status to penicillin; Z88.1 Allergy status to other antibiotic agents; Z88.8 Allergy status to other drugs, medicaments and biological substances
CPT/HCPCS: 36415; 80053; 81001; 81025; 83690; 85025; 96361; 96374; 96375; 99284; J1200; J2765; J7030

== ENCOUNTER 2019-04-13 07:07 | Observation (INO) | payer OTHER ==
[~2019-04-13] VITALS: Ht 152.4 cm; Wt 65.0 kg
[~2019-04-13 07:07] MED LIST changes: +METO10TA81 PO
[2019-04-13] MEDS ORDERED: IV NORMAL SALINE 1,000ML 1,000 ML IV SCH (07:24)
--- NOTE | 2019-04-13 07:40 | PHYS DOC ---
Past History Past Medical History: Anxiety, Depression, GERD, Migraines, Other Additional Past Medical Histor: FIBROMYLIA Past Surgical History: Other Additional Past Surgical Histo: ENDOSCOPY, COLONSOPE Alcohol Use: None Drug Use: None Adult General Chief Complaint Chief Complaint: CHEST WALL PAIN [facility] HPI Patient is a 48-year-old female who presents with report of chest pain, abdominal pain and severe anxiety. Patient was seen here yesterday for anxiety and nausea. Patient states that her nausea was better when she left but then nausea developed again. She states that she has also been having chest pain throughout the night and states that she was unable to sleep because of the chest pain. Patient rates pain as severe. She states the pain is worsened with just about everything. Patient also indicates that her nausea is back.[] Review of Systems Review of Systems Constitutional: Denies fever or chills [] Respiratory: Denies cough or shortness of breath [] Cardiovascular: No additional information not addressed in HPI [] GI: Complains of abdominal pain with nausea and vomiting. Denies diarrhea [] Integument: Denies rash or skin lesions [] Neurologic: Denies headache, focal weakness or sensory changes [] Psychiatric: Complains of severe anxiety[] All other systems were reviewed and found to be within normal limits, except as documented in this note. Current Medications Current Medications Current Medications Medications (Trade) Dose Ordered Sig/[facility] Start Time Stop Time Status Last Admin Dose Admin Aspirin (Children'S Aspirin) 324 mg 1X ONCE 04/13/19 07:30 04/13/19 07:31 UNV Nitroglycerin (Nitrostat) 0.4 mg PRN Q5MIN PRN 04/13/19 07:30 04/14/19 07:29 UNV Sodium Chloride 1,000 ml @ 1,000 mls/hr Q1H 04/13/19 07:24 04/13/19 08:23 UNV Allergies Allergies Allergies Coded Allergies Type Severity Reaction Last Updated Verified Penicillins Allergy Unknown 04/13/19 Yes Sulfa (Sulfonamide Antibiotics) Allergy Unknown 04/13/19 Yes clarithromycin Allergy Unknown 04/13/19 Yes metronidazole Allergy Unknown 04/13/19 Yes Physical Exam Physical Exam Constitutional: Well developed, well nourished, no acute distress, non-toxic appearance. [] HENT: Normocephalic, atraumatic, bilateral external ears normal, oropharynx moist, no oral exudates, nose normal. [] Eyes: PERRLA, EOMI, conjunctiva normal, no discharge. [] Neck: Normal range of motion, no tenderness, supple, no stridor. [] Cardiovascular: Regular rate and rhythm[] Lungs & Thorax: Bilateral breath sounds clear to auscultation [] Abdomen: Bowel sounds normal, soft, with diffuse tenderness. [] Skin: Warm, dry, no erythema, no rash. [] Extremities: No tenderness, no cyanosis, no clubbing, ROM intact. [] Neurologic: Alert and oriented X 3, no focal deficits noted. [] Psychologic: Patient tearful on exam, anxious with depressed mood. [] Current Patient Data Vital Signs Vital Signs Date Time Temp Pulse Resp B/P (MAP) Pulse Ox O2 Delivery O2 Flow Rate FiO2 04/13/19 07:19 98.8 106 18 158/91 (113) Room Air 95.0 EKG EKG EKG demonstrates sinus tachycardia with rate of 101.[] Radiology/Procedures Radiology/Procedures [] Impressions: REASON: chest pain PROCEDURE: PORTABLE CHEST 1V EXAM: PORTABLE CHEST 1V INDICATION: Chest pain. TECHNIQUE: Single view COMPARISON: None FINDINGS: The heart size is normal. The great vessels appear unremarkable. There is no hilar or mediastinal mass. The lungs are clear. There is no pleural effusion or pneumothorax. There are no significant osseous abnormalities. IMPRESSION: No active cardiopulmonary disease. Electronically signed by: Alona Velazco MD (04/13/2019 7:58 AM) [facility] Course & Med Decision Making Course & Med Decision Making Pertinent Labs and Imaging studies reviewed. (See chart for details) [] Dragon Disclaimer Dragon Disclaimer This electronic medical record was generated, in whole or in part, using a voice recognition dictation system. Departure Departure: Impression: Primary Impression: Chest pain Additional Impressions: Nausea and vomiting Anxiety disorder Disposition: ADMITTED INPATIENT Admitting Physician: Hayley Robles Condition: IMPROVED Referrals: GARRICK OWEN MD (PCP) Problem Qualifiers Primary Impression: Chest pain Chest pain type: unspecified Qualified Codes: R07.9 - Chest pain, unspecified Additional Impressions: Nausea and vomiting Vomiting type: unspecified Vomiting Intractability: unspecified Qualified Codes: R11.2 - Nausea with vomiting, unspecified Anxiety disorder Anxiety disorder type: unspecified anxiety disorder Qualified Codes: F41.9 - Anxiety disorder, unspecified RAYMUNDO AYOUB Jr. DO Apr 13, 2019 07:40
[2019-04-13] MEDS ORDERED: ASPIRIN 81 MG TAB.CHEW PO ONE (07:45)
[2019-04-13] MEDS: NITROGLYCERIN SUBLINGUAL 0.4 MG BOTTLE OF 25. SL PRN ×2 (07:49→08:00)
[2019-04-13 08:00] LABS: BASO # 0.1 x10^3/uL (0.0-0.2); BASO % 1 % (0-3); EOS % 0 % (0-3); HEMATOCRIT 38.5 % (36.0-47.0); HEMOGLOBIN 12.4 g/dL (12.0-15.5); LYMPH # 1.2 x10^3/uL (1.0-4.8); LYMPH % 14 % (24-48); MEAN CORPUSCULAR HEMOGLOBIN 23 pg (25-35); MEAN CORPUSCULAR HGB CONC 32 g/dL (31-37); MEAN CORPUSCULAR VOLUME 72 fL (79-100); MONO # 0.6 x10^3/uL (0.0-1.1); MONO % 7 % (0-9); NEUT % 79 % (31-73); PLATELET COUNT 488 x10^3/uL (140-400); RED BLOOD COUNT 5.34 x10^6/uL (3.50-5.40); RED CELL DISTRIBUTION WIDTH 29.1 % (11.5-14.5); WHITE BLOOD COUNT 8.9 x10^3/uL (4.0-11.0)
[2019-04-13] MEDS ORDERED: METOCLOPRAMIDE HCL 10 MG/2 ML VIAL. IVP ONE (08:00)
--- NOTE | 2019-04-13 08:01 | RAD ---
EXAM: PORTABLE CHEST 1V INDICATION: Chest pain. TECHNIQUE: Single view COMPARISON: None FINDINGS: The heart size is normal. The great vessels appear unremarkable. There is no hilar or mediastinal mass. The lungs are clear. There is no pleural effusion or pneumothorax. There are no significant osseous abnormalities. IMPRESSION: No active cardiopulmonary disease. Electronically signed by: Alona Velazco MD (04/13/2019 7:58 AM) [facility]
[2019-04-13 08:08] LABS: CALCIUM 9.1 mg/dL (8.5-10.1); CREATININE 0.9 mg/dL (0.6-1.0); GFR 66.3; POTASSIUM 3.5 mmol/L (3.5-5.1)
[2019-04-13 08:14] LABS: ALBUMIN 3.9 g/dL (3.4-5.0); ALBUMIN/GLOBULIN RATIO 1.2 (1.0-1.7); MAGNESIUM 2.3 mg/dL (1.8-2.4); TOTAL BILIRUBIN 0.2 mg/dL (0.2-1.0); TOTAL PROTEIN 7.1 g/dL (6.4-8.2)
[2019-04-13] MEDS ORDERED: KETOROLAC 30 MG/ML VIAL. IVP ONE (08:15)
[2019-04-13] MEDS ORDERED: HALOPERIDOL LACT 5 MG/ML VIAL. IVP ONE (08:15)
[2019-04-13] MEDS ORDERED: ONDANSETRON PF 4 MG/2 ML VIAL. IV PRN (09:00)
[2019-04-13] MEDS ORDERED: NITROGLYCERIN SUBLINGUAL 0.4 MG BOTTLE OF 25. SL PRN (09:00)
[2019-04-13 09:08] LABS: PLT ESTIMATE INCREASED (ADEQUATE)
[2019-04-13 09:09] LABS: OVALOCYTES FEW
[2019-04-13 09:11] LABS: BURR CELLS FEW; TARGET CELLS OCC
[2019-04-13 09:12] LABS: TEAR DROP CELLS OCC
[2019-04-13 09:13] LABS: ANISOCYTOSIS SLIGHT
[2019-04-13 09:14] LABS: HYPOCHROMIA SLIGHT; MICROCYTOSIS SLIGHT
[2019-04-13 09:28] VITALS: BP 122/73
--- NOTE | 2019-04-13 09:47 | PDOC2 ---
GIBRAN ALFARO DRIVER MEDIC 04/13/19 0947: CARDIAC CONSULT DATE OF CONSULT Date Of Consult DATE: 04/13/19 TIME: 09:44 REASON FOR CONSULT Reason for Consult Chest pain REFERRING PHYSICIAN Referring Physician Dr. Robles SOURCE Source: Chart review, Patient HPI History of Present Illness This is a 48 yo female who presented secondary to left chest and left sided abdominal pain. Reports her fibromyalgia has flared up again. Has had stabbing pain under her left breast for the last 3 months. Pain moves down her left side. Associated with nausea. No dizziness, diaphoresis, palpitations, or SOA. Has significant tenderness in the left side with only sfot palpitation. Certain movements also exacerbate the pain. PAST MEDICAL HISTORY GI: Diverticulosis, Irritable bowel disease Psych: Bipolar, Depression Rheumatologic: Fibromyalgia PAST SURGICAL HISTORY Past Surgical History: No pertinent history FAMILY HISTORY Family History: Hypertension SOCIAL HISTORY Smoke: No ALCOHOL: none Drugs: None Lives: with Family CURRENT MEDICATIONS Current Medications Current Medications Aspirin (Children'S Aspirin) 324 mg 1X ONCE PO Last administered on 04/13/19at 07:49; Start 04/13/19 at 07:45; Stop 04/13/19 at 07:46; Status DC Nitroglycerin (Nitrostat) 0.4 mg PRN Q5MIN PRN SL CP RATING > 1/10 Last administered on 04/13/19at 08:00; Start 04/13/19 at 07:30; Stop 04/13/19 at 08:57; Status DC Sodium Chloride 1,000 ml @ 1,000 mls/hr Q1H IV Last administered on 04/13/19at 07:48; Start 04/13/19 at 07:24; Stop 04/13/19 at 08:23; Status DC Metoclopramide HCl (Reglan Vial) 10 mg 1X ONCE IVP Last administered on 04/13/19at 07:48; Start 04/13/19 at 08:00; Stop 04/13/19 at 08:01; Status DC Ketorolac Tromethamine (Toradol 30mg Vial) 30 mg 1X ONCE IVP Last administered on 04/13/19at 08:09; Start 04/13/19 at 08:15; Stop 04/13/19 at 08:16; Status DC Haloperidol Lactate (Haldol) 5 mg 1X ONCE IVP Last administered on 04/13/19at 08:09; Start 04/13/19 at 08:15; Stop 04/13/19 at 08:16; Status DC Ondansetron HCl (Zofran) 4 mg PRN Q4HRS PRN IV NAUSEA/VOMITING; Start 04/13/19 at 09:00; Stop 04/14/19 at 08:59 Nitroglycerin (Nitrostat) 0.4 mg PRN Q5MIN PRN SL CHEST PAIN; Start 04/13/19 at 09:00; Stop 04/14/19 at 08:59 Active Scripts Active Reglan (Metoclopramide Hcl) 10 Mg Tablet 1 Tab PO QID PRN 5 Days before food and bedtime Reglan (Metoclopramide Hcl) 10 Mg Tablet 1 Tab PO QID PRN before food and bedtime Reported Risperdal (Risperidone) 0.5 Mg Tablet 1 Tab PO QHS 30 Days Fluticasone Propionate 15.8 Ml [place].susp 15.8 Ml NS DAILY [place] [employer] (Rizatriptan Benzoate) 10 Mg Tab.rapdis 5 Mg PO Q2HR Montelukast Sodium Tablet (Montelukast Sodium) 10 Mg Tablet 10 Mg PO HS Miralax (Polyethylene Glycol 3350) 17 Gm Powd.pack 1 Packet PO DAILY 2 Days dissolve in water Omeprazole 40 Mg Capsule.dr 1 Cap PO DAILY Magnesium Citrate 100 Mg Tablet 1 Tab PO PRN PRN 30 Days Topamax (Topiramate) 25 Mg Tablet 1 Tab PO QID 30 Days Lamotrigine 100 Mg Tab.er.24 1 Tab PO QID 30 Days ALLERGIES Allergies: Coded Allergies: Penicillins (Verified Allergy, Unknown, 04/13/19) Sulfa (Sulfonamide Antibiotics) (Verified Allergy, Unknown, 04/13/19) clarithromycin (Verified Allergy, Unknown, 04/13/19) metronidazole (Verified Allergy, Unknown, 04/13/19) ROS Review of Systems 14 point ROS conducted with pertinent positives noted above in hPI PHYSICAL EXAM General: Alert, Oriented X3, Cooperative, No acute distress HEENT: Atraumatic, Mucous membr. moist/pink Lungs: Clear to auscultation, Other (significant left chest tenderness with palpitation) Heart: Regular rate, Normal S1, Normal S2, No murmurs Abdomen: Soft, No tenderness Extremities: No edema, Normal pulses Skin: No rashes, No breakdown Neuro: Normal speech, Sensation intact Psych/Mental Status: Mental status NL, Mood NL MUSCULOSKELETAL: No joint tenderness VITALS Vital Signs Vital Signs Date Time Temp Pulse Resp B/P (MAP) Pulse Ox O2 Delivery O2 Flow Rate FiO2 04/13/19 09:28 98.1 80 20 122/73 (89) 94 Room Air 04/13/19 07:19 95.0 LABS LABS Laboratory Tests Test 04/13/19 07:44 White Blood Count 8.9 x10^3/uL (4.0-11.0) Red Blood Count 5.34 x10^6/uL (3.50-5.40) Hemoglobin 12.4 g/dL (12.0-15.5) Hematocrit 38.5 % (36.0-47.0) Mean Corpuscular Volume 72 fL (79-100) Mean Corpuscular Hemoglobin 23 pg (25-35) Mean Corpuscular Hemoglobin Concent 32 g/dL (31-37) Red Cell Distribution Width 29.1 % (11.5-14.5) Platelet Count 488 x10^3/uL (140-400) Neutrophils (%) (Auto) 79 % (31-73) Lymphocytes (%) (Auto) 14 % (24-48) Monocytes (%) (Auto) 7 % (0-9) Eosinophils (%) (Auto) 0 % (0-3) Basophils (%) (Auto) 1 % (0-3) Neutrophils # (Auto) 7.0 x10^3uL (1.8-7.7) Lymphocytes # (Auto) 1.2 x10^3/uL (1.0-4.8) Monocytes # (Auto) 0.6 x10^3/uL (0.0-1.1) Eosinophils # (Auto) 0.0 x10^3/uL (0.0-0.7) Basophils # (Auto) 0.1 x10^3/uL (0.0-0.2) Platelet Estimate Increased (ADEQUATE) Hypochromasia Slight Anisocytosis Slight Microcytosis Slight Target Cells Occ Tear Drop Cells Occ Ovalocytes Few [place] Cells Few Sodium Level 141 mmol/L (136-145) Potassium Level 3.5 mmol/L (3.5-5.1) Chloride Level 106 mmol/L (98-107) Carbon Dioxide Level 21 mmol/L (21-32) Anion Gap 14 (6-14) Blood Urea Nitrogen 13 mg/dL (7-20) Creatinine 0.9 mg/dL (0.6-1.0) Estimated GFR (Cockcroft-Gault) 66.3 BUN/Creatinine Ratio 14 (6-20) Glucose Level 112 mg/dL (70-99) Calcium Level 9.1 mg/dL (8.5-10.1) Magnesium Level 2.3 mg/dL (1.8-2.4) Total Bilirubin 0.2 mg/dL (0.2-1.0) Aspartate Amino Transf (AST/SGOT) 16 U/L (15-37) Alanine Aminotransferase (ALT/SGPT) 41 U/L (14-59) Alkaline Phosphatase 80 U/L (46-116) Troponin I Quantitative < 0.017 ng/mL (0-0.055) Total Protein 7.1 g/dL (6.4-8.2) Albumin 3.9 g/dL (3.4-5.0) Albumin/Globulin Ratio 1.2 (1.0-1.7) Lipase 348 U/L (73-393) ASSESSMENT/PLAN Assessment/Plan 1. Chest pain, non-cardiac; initial trop negative. EKG without acute changes. 2. Abdominal pain 3. Depression, bipolar 4. Fibromyalgia 6. GERD, IBS Recommendations Supportive care Outpatient echocardiogram No further cardiac workup indicated at this time CHARLOTTE STEARNS MD 04/13/19 1538: CARDIAC CONSULT ASSESSMENT/PLAN Assessment/Plan Patient seen and examined. Agree with COLOR TESTER's assessment and plan. Chest pain with atypical features, reproducible to palpation and most probably musculoskeletal Myocardial infarction has been ruled out Plan outpatient echocardiogram and MPI Thank you for your consultation GIBRAN ALFARO APRN Apr 13, 2019 09:47 CHARLOTTE STEARNS MD Apr 13, 2019 15:38
[2019-04-13] MEDS ORDERED: TOPI50TA38 PO (11:09)
[2019-04-13] MEDS ORDERED: PANT40TA5 PO (11:09)
[2019-04-13] MEDS ORDERED: MONT10TA80 PO (11:09)
[2019-04-13] MEDS ORDERED: DULO30CA2 PO (11:09)
--- NOTE | 2019-04-13 11:41 | EKG ---
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
[2019-04-13 14:49] LABS: THYROID STIM HORMONE (TSH) 3.14 uIU/mL (0.358-3.740)
[2019-04-13 15:49] VITALS: BP 138/78
[2019-04-13] MEDS ORDERED: HYDROcodone/APAP 5/325MG 1 TAB TABLET PO ONE (16:30)
--- NOTE | 2019-04-13 17:34 | SSS ---
ADMIT DATE: 04/13/2019 HISTORY OF PRESENT ILLNESS: The patient is a 48-year-old female patient who came to the Emergency Room complaining of left side chest and left side abdominal pain. Reports that her fibromyalgia has flared up again, had stabbing pain under her left breast for the last 3 months, pain moves down left side associated with nausea. No dizziness. No diaphoresis, palpitation or shortness of air. Has significant tenderness in the left side with only soft palpation. Certain movements also exacerbate pain. She was evaluated in the Emergency Room. Her EKG showed that she has sinus tachycardia with a heart rate of 101. She has 3 sets of cardiac enzymes that ruled out myocardial infarction and has had fasting lipid profile showed her serum triglyceride was 60, total cholesterol was 127, LDL was 145, VLDL was 12, and HDL was 70, the ratio of 3. Her serum lipase was normal. TSH was normal. She was seen in consultation by the Cardiology team and their impression is the patient has noncardiac pain. She has obviously fibromyalgia, gastroesophageal reflux disease, and IBS. She has had upper and lower GI endoscopy done and apparently has esophageal stricture that was dilated. PAST MEDICAL HISTORY: Significant for diverticulosis and apparently polyp was removed in her most recent colonoscopy, irritable bowel syndrome, bipolar, depression, fibromyalgia. She also has microcytic hypochromic anemia with an MCV of only 72 picogram, although it seems that she is responding to the iron. PAST SURGICAL HISTORY: Significant for upper and lower GI endoscopy with biopsies from her stomach and polypectomy. FAMILY HISTORY: Significant for hypertension. SOCIAL HISTORY: She is , has 1 son who is 19 years old. She has never smoked, does not drink alcohol or use any recreational drugs. 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 REVIEW OF SYSTEMS: As per history of present illness. PHYSICAL EXAMINATION GENERAL: When I examined her this afternoon, she looked well and was clearly in no apparent respiratory distress. No pallor, jaundice, cyanosis or thyromegaly. No jugular venous distention. No limb edema. VITAL SIGNS: Her heart rate was 80, blood pressure was 122/73, temperature was 98.1, respiratory rate 20, and oxygen saturation was 98%. The rest of clinical exam is stable. LABORATORY DATA: Her lab work showed her white cell count was 8900, hemoglobin 12.4, hematocrit 38.5, MCV 72 and platelet count 488,000 with normal manual differential. Her chemistry showed serum sodium of 141, potassium 3.5, chloride 106, bicarbonate 21, anion gap of 14, BUN 13, creatinine 0.9, estimated GFR was 66 mL per minute. The patient will be discharged home to follow with her primary care physician with Zofran as well as hydrocodone. FINAL DISCHARGE DIAGNOSES: 1. Chest pain, atypical, myocardial infarction ruled out. 2. Gastroesophageal reflux disease, irritable bowel syndrome. DICTATION ENDS HERE GENNA ALMAZAN MD DR: ILENE/neto JOB#: [id number] / [id number]
[2019-04-13 18:33] VITALS: BP 129/74
--- NOTE | 2019-04-13 22:14 | PDOC ---
Exam Note: Georges Note: Please also refer to the separate dictated note~for this date of service dictated separately.~Patient seen individually. Discussed the patient with Nursing staff reviewed the chart.~Reviewed interim history and current functioning. Reviewed vital signs,~Labs/ Radiology~and current medications noted below. Continue current treatment with the changes noted in the dictated addendum note Assessment: Vital Signs/I&O: Vital Signs Date Time Temp Pulse Resp B/P (MAP) Pulse Ox O2 Delivery O2 Flow Rate FiO2 04/13/19 18:33 97.9 84 129/74 (92) 96 Room Air 04/13/19 17:13 20 04/13/19 07:19 95.0 Labs: Laboratory Tests Test 04/13/19 07:44 04/13/19 09:46 04/13/19 12:11 04/13/19 15:45 White Blood Count 8.9 x10^3/uL (4.0-11.0) Red Blood Count 5.34 x10^6/uL (3.50-5.40) Hemoglobin 12.4 g/dL (12.0-15.5) Hematocrit 38.5 % (36.0-47.0) Mean Corpuscular Volume 72 fL (79-100) L Mean Corpuscular Hemoglobin 23 pg (25-35) L Mean Corpuscular Hemoglobin Concent 32 g/dL (31-37) Red Cell Distribution Width 29.1 % (11.5-14.5) H Platelet Count 488 x10^3/uL (140-400) H Neutrophils (%) (Auto) 79 % (31-73) H Lymphocytes (%) (Auto) 14 % (24-48) L Monocytes (%) (Auto) 7 % (0-9) Eosinophils (%) (Auto) 0 % (0-3) Basophils (%) (Auto) 1 % (0-3) Neutrophils # (Auto) 7.0 x10^3uL (1.8-7.7) Lymphocytes # (Auto) 1.2 x10^3/uL (1.0-4.8) Monocytes # (Auto) 0.6 x10^3/uL (0.0-1.1) Eosinophils # (Auto) 0.0 x10^3/uL (0.0-0.7) Basophils # (Auto) 0.1 x10^3/uL (0.0-0.2) Platelet Estimate Increased (ADEQUATE) Hypochromasia Slight Anisocytosis Slight Microcytosis Slight Target Cells Occ Tear Drop Cells Occ Ovalocytes Few [place] Cells Few Sodium Level 141 mmol/L (136-145) Potassium Level 3.5 mmol/L (3.5-5.1) Chloride Level 106 mmol/L (98-107) Carbon Dioxide Level 21 mmol/L (21-32) Anion Gap 14 (6-14) Blood Urea Nitrogen 13 mg/dL (7-20) Creatinine 0.9 mg/dL (0.6-1.0) Estimated GFR (Cockcroft-Gault) 66.3 BUN/Creatinine Ratio 14 (6-20) Glucose Level 112 mg/dL (70-99) H Calcium Level 9.1 mg/dL (8.5-10.1) Magnesium Level 2.3 mg/dL (1.8-2.4) Total Bilirubin 0.2 mg/dL (0.2-1.0) Aspartate Amino Transferase (AST) 16 U/L (15-37) Alanine Aminotransferase (ALT) 41 U/L (14-59) Alkaline Phosphatase 80 U/L (46-116) Troponin I Quantitative < 0.017 ng/mL (0-0.055) < 0.017 ng/mL (0-0.055) < 0.017 ng/mL (0-0.055) Total Protein 7.1 g/dL (6.4-8.2) Albumin 3.9 g/dL (3.4-5.0) Albumin/Globulin Ratio 1.2 (1.0-1.7) Lipase 348 U/L (73-393) Triglycerides Level 60 mg/dL (0-150) Cholesterol Level 227 mg/dL (0-200) H LDL Cholesterol, Calculated 145 mg/dL (0-100) H VLDL Cholesterol, Calculated 12 mg/dL (0-40) Non-HDL Cholesterol Calculated 157 mg/dL (0-129) H HDL Cholesterol 70 mg/dL (40-60) H Cholesterol/HDL Ratio 3.0 Thyroid Stimulating Hormone (TSH) 3.140 uIU/mL (0.358-3.740) Current Medications: Meds: Current Medications Medications (Trade) Dose Ordered Sig/[place] Route PRN Reason Start Time Stop Time Status Last Admin Dose Admin Aspirin (Children'S Aspirin) 324 mg 1X ONCE PO 04/13/19 07:45 04/13/19 07:46 DC 04/13/19 07:49 Nitroglycerin (Nitrostat) 0.4 mg PRN Q5MIN PRN SL CP RATING > 1/10 04/13/19 07:30 04/13/19 08:57 DC 04/13/19 08:00 Sodium Chloride 1,000 ml @ 1,000 mls/hr Q1H IV 04/13/19 07:24 04/13/19 08:23 DC 04/13/19 07:48 Metoclopramide HCl (Reglan Vial) 10 mg 1X ONCE IVP 04/13/19 08:00 04/13/19 08:01 DC 04/13/19 07:48 Ketorolac Tromethamine (Toradol 30mg Vial) 30 mg 1X ONCE IVP 04/13/19 08:15 04/13/19 08:16 DC 04/13/19 08:09 Haloperidol Lactate (Haldol) 5 mg 1X ONCE IVP 04/13/19 08:15 04/13/19 08:16 DC 04/13/19 08:09 Ondansetron HCl (Zofran) 4 mg PRN Q4HRS PRN IV NAUSEA/VOMITING 04/13/19 09:00 04/13/19 19:43 DC 04/13/19 16:13 Acetaminophen/ Hydrocodone Bitart (Lortab 5/325) 1 tab 1X ONCE PO 04/13/19 16:30 04/13/19 16:31 DC 04/13/19 16:13 I have reviewed the current psychotropics carefully including drug interactions. Risk benefit ratio favors no change other than as noted in my dictated progress note. Diagnosis: Problems: (1) GERD (gastroesophageal reflux disease) (2) Bipolar 1 disorder, mixed, moderate (3) Anxiety disorder (4) Psychosis, atypical (5) Chest pain PAUL MUSA MD Apr 13, 2019 22:14
--- NOTE | 2019-04-14 21:03 | CONS ---
DATE OF CONSULTATION: 04/13/2019 This late entry 04/13/2019 covers elements not covered in my initial note. SUBJECTIVE: I met with the patient evening of 04/13/2019. Discussed with nursing staff, reviewed the chart. I also met with the patient's , who was in the room with her. IDENTIFYING DATA: The patient is a 48-year-old female seen in room [facility] of [facility] for psychiatric consultation to follow up on her psychotropics for bipolar disorder after the patient was admitted consequent to left-sided chest pain, left-sided abdominal pain. She reported that her fibromyalgia had flared up again. She had stabbing pain under her left breast for the last 3 months. The pain moves down her left side. She also complains of increased anxiety and has followed with me as an outpatient at the office. She was noted to have ongoing mood swings, anxiety and I have been asked to consult and make recommendations on her psychotropics. The patient has been seen by Cardiology and cleared by them as noncardiac pain. Initial troponin negative. EKG without acute changes. CHIEF COMPLAINT: "I get more anxious. I am still taking Cymbalta 30 mg a day, should I increase it to 60 mg a day." HISTORY OF PRESENT ILLNESS: The patient has a history of bipolar disorder with periods of elation, racing thoughts alternating with being depressed and anxiety occurring during both phases of her illness. She had been quite paranoid previously and that has been stabilized on the Risperdal and the mood swings have been better on the Lamictal 200 mg twice a day. She continues to be somatic, has had some GI symptoms and then the cardiac symptoms noted above. No clear current psychotic symptoms, suicidal or homicidal ideation. PAST PSYCHIATRIC HISTORY: As above. CURRENT PSYCHOTROPICS: Lamictal 200 mg b.i.d., Risperdal 0.5 mg p.o. at bedtime, Topamax 25 mg 4 times a day. MEDICAL HISTORY: Fibromyalgia, diverticulosis, irritable bowel syndrome, migraine headaches. ALLERGIES: PENICILLIN, SULFA, CLARITHROMYCIN and METRONIDAZOLE. FAMILY HISTORY: Noncontributory for psychiatric SOCIAL HISTORY: The patient lives at home with her who was with her in the room and provided further historical information. No alcohol or drug abuse history. MENTAL STATUS EXAMINATION: The patient was seen individually in the evening of 04/13/2019. She is reasonably oriented. Speech is coherent, somewhat rapid at times due to anxiety. Abstraction fair, computation impaired, language function intact, attention span short. Mood and affect remain somewhat anxious. LABORATORY DATA: Reviewed. No suicidal or homicidal ideation. IMPRESSION: Bipolar disorder, mixed with history of psychotic features; anxiety disorder, unspecified; history of major depressive disorder. Rest diagnoses as above. RECOMMENDATIONS: From a psychiatric standpoint, we had a lengthy discussion whether the Cymbalta should be increased for her mood and anxiety symptoms. In the past higher dosages of antidepressants have worsened her mood lability consequent to the bipolar disorder and I would leave everything unchanged for now, then we will address this as an outpatient. Dr. Robles, thank you for the opportunity to participate in your patient's care. We will follow with you. MAN Karla MUSA MD DR: QUINTON/neto JOB#: [id number] / [id number]
== END 2019-04-13 19:40 | disposition home or self-care (01) ==
LOC: ER 07:07 → 1 SOUTH 08:43 → INTOOBSV 08:43
PROVIDERS: ADMIT Internal Medicine; ATTEND Internal Medicine
DX: K21.9 Gastro-esophageal reflux disease without esophagitis (principal); K58.9 Irritable bowel syndrome, unspecified; R07.89 Other chest pain; F41.8 Other specified anxiety disorders; F29 Unspecified psychosis not due to a substance or known physiological condition; F31.62 Bipolar disorder, current episode mixed, moderate; R11.2 Nausea with vomiting, unspecified; G43.909 Migraine, unspecified, not intractable, without status migrainosus; Z79.82 Long term (current) use of aspirin; Z79.899 Other long term (current) drug therapy; Z88.0 Allergy status to penicillin; M79.7 Fibromyalgia
CPT/HCPCS: 36415; 71045; 80053; 80061; 83690; 83735; 84443; 84484; 85025; 93005; 96361; 96374; 96375; 99285; G0378; J1630; J1885; J2405; J2765; G0379; J7030

== ENCOUNTER → 2019-10-11 | Outpatient (CLI) | payer OTHER ==
[~2019-10-11] MED LIST changes: +DULO30CA2 PO; +IOHEXOL 300 MG/ML 75 ML VIAL. IV ONE; +PANT40TA5 PO; +TOPI50TA38 PO
--- NOTE | 2019-10-11 13:59 | RAD ---
CT CHEST W/CONTRAST Indication: Fluid seen on lungs on MRI, status post hysterectomy August 2019 Technique: Postcontrast CT imaging was performed of the chest, multiplanar reconstruction images submitted. One or more of the following individualized dose reduction techniques were utilized for this examination: 1. Automated exposure control 2. Adjustment of the mA and/or kV according to patient size 3. Use of iterative reconstruction technique. Comparison: None other than MRI thoracic exam September 03, 2019 Findings: There is trace focus of pleural fluid at the right lung base. There is some density of the anterior mediastinum, not associated with significant bowing of the mediastinal contour.Thoracic aortic caliber is within normal limits, no intraluminal flap. There is no pleural or pericardial fluid, pneumothorax, or infiltrate. There is a tiny 0.2 cm subpleural left lower lobe nodule image 55 series 4. IMPRESSION: 1. There is trace residual pleural fluid at right lung base. 2. Given lack of significant mass effect, density in the anterior mediastinum is more likely due to reactive thymus. 3. There is a tiny subpleural left lower lobe nodule. If there are increased risk factors for neoplasm, optional 12 month follow-up could be performed as per revised Fleischner guidelines, otherwise no additional follow-up needed if low risk factors. Electronically signed by: Warren Anne MD (10/11/2019 1:56 PM) [facility]
== END | disposition home or self-care (01) ==
LOC: CT 12:50
PROVIDERS: ATTEND Family Medicine
DX: R91.8 Other nonspecific abnormal finding of lung field (principal); R91.1 Solitary pulmonary nodule; J98.4 Other disorders of lung; J90 Pleural effusion, not elsewhere classified
CPT/HCPCS: 71260; Q9967

== ENCOUNTER → 2019-11-02 | Outpatient (CLI) | payer OTHER ==
[~2019-11-02] MED LIST changes: -IOHEXOL 300 MG/ML 75 ML VIAL. IV ONE; -PANT40TA5 PO; +PANT40TA6 PO
--- NOTE | 2019-11-02 15:05 | RAD ---
Examination: 1. Bilateral digital diagnostic mammogram. 2. Targeted right breast ultrasound. INDICATION: 49-year-old woman due for mammographic screening presents with intermittent right nonbloody nipple discharge of uncertain color. She reports this has increased with a change in her psychiatric medications and that she has previously been treated surgically for bilateral nipple discharge, only successful on the left. COMPARISON: 04/15/2018 TECHNIQUE: Bilateral CC and MLO views were obtained with 2-D and 3-D technique and reviewed with computer-aided detection. In addition, targeted ultrasound of the periareolar right breast was performed. FINDINGS: Scattered fibroglandular densities. In both breasts, no developing mass, suspicious calcification or architectural distortion is evident. The nipple areola complex shows nipple inversion that patient reports has been present from a young age. No skin thickening or trabecular coarsening is apparent. Targeted ultrasound of the periareolar right breast revealed no significant sonographic abnormality. A few benign-appearing dilated ducts and subareolar cysts were apparent. IMPRESSION: Benign findings on targeted right breast ultrasound and bilateral digital diagnostic mammogram. No findings suspicious for malignancy in either breast. BI-RADS Category 2 Benign findings Recommend clinical management of patient's reported spontaneous right nipple discharge. Any clinically suspicious findings if present in the opinion of the patient's referring provider should be considered for biopsy which may include a surgical referral. In the absence of any clinically suspicious findings, routine mammographic screening next due in one year is recommended. Electronically signed by: Alona Velazco MD (11/02/2019 3:01 PM) [id number]
== END ==
LOC: MAMMO 12:52
PROVIDERS: ATTEND Family Medicine
DX: N64.52 Nipple discharge (principal)
CPT/HCPCS: 76641; 77066; G0279; 77062